=== PATIENT | male | born 1945 | race Caucasian/White ===

== ENCOUNTER → 2018-05-08 | Outpatient (CLI) | payer OTHER | LOC: FIMAGING 11:51 | PROVIDERS: ATTEND Internal Medicine | DX: M50.31 Other cervical disc degeneration, high cervical region (principal); M50.321 Other cervical disc degeneration at C4-C5 level; M50.322 Other cervical disc degeneration at C5-C6 level; M89.38 Hypertrophy of bone, other site; R05 Cough; R09.81 Nasal congestion; E78.00 Pure hypercholesterolemia, unspecified; I25.10 Atherosclerotic heart disease of native coronary artery without angina pectoris; K62.1 Rectal polyp; N40.1 Benign prostatic hyperplasia with lower urinary tract symptoms; E66.3 Overweight ==